=== PATIENT | female | born 1970 | race Caucasian/White ===

== ENCOUNTER 2019-01-04 19:32 | Emergency (ER) | payer SELFPAY ==
[2019-01-04 22:58] LABS: Absolute Monocytes 0.6 K/uL (0.1-1.3); Basophils % 0.7 % (0-1.3); Eosinophils % 1.4 % (0-4.4); Hematocrit 40.6 % (36.0-45.0); Lymphocytes % 33.8 % (15.3-44.8); MPV 9.4 fL (7.6-11.3); Monocytes % 6.6 % (3.3-12.3); RBC Red Blood Cell Count 4.37 M/uL (3.86-4.86)
[2019-01-04 23:00] LABS: BUN Blood Urea Nitrogen 17 mg/dL (7-18); Bicarbonate 28 mmol/L (21-32); Glucose Level 107 mg/dL (74-106); NT PRO-BNP 56 pg/mL (<125); Potassium 3.9 mmol/L (3.5-5.1); Sodium Level 143 mmol/L (136-145); Troponin (Emerg Dept Use Only) < 0.02 ng/mL (0.0-0.045)
[2019-01-04 23:55] LABS: Urine Blood NEGATIVE (NEG); Urine Glucose NEGATIVE (NEG); Urine Protein NEGATIVE (NEG); Urine Specific Gravity 1.025 (1.005-1.030); Urine pH 6.5 (5.0-7.0)
--- NOTE | 2019-01-05 01:40 | EDPHYS ---
Physician Documentation [facility] Name: Ghislaine Chambers Age: 48 yrs Sex: Female : 1970 Arrival Date: 01/04/2019 Time: 19:36 Bed 20 Private MD: ED Physician Alexis Deluna HPI: 01/05 01:32 This 48 yrs old Female presents to ER via Ambulatory with complaints of Chest gs Pain. 01:32 The patient or guardian reports chest pain that is located primarily in the anterior gs chest wall, right. Onset: yesterday. The pain does not radiate. Associated signs and symptoms: Pertinent negatives: diaphoresis, shortness of breath. The chest pain is described as SAYS FEELS LIKE ELECTRICAL SHOCKS IN CHEST AND NECK. Duration: The patient or guardian reports multiple episodes, that are intermittent, that wax and wane, with no pattern. Modifying factors: The symptoms are alleviated by nothing. the symptoms are aggravated by nothing. Severity of pain: At its worst the pain was moderate in the emergency department the pain has resolved. 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 - Social history:: Smoking status: Patient uses tobacco products, smokes one-half pack cigarettes per day. - Ebola Screening: : No symptoms or risks identified at this time. ROS: 01/05 01:32 All other systems are negative. gs Exam: 01:32 Head/Face: Normocephalic, atraumatic. Eyes: Pupils equal round and reactive to light, gs extra-ocular motions intact. Lids and lashes normal. Conjunctiva and sclera are non-icteric and not injected. Cornea within normal limits. Periorbital areas with no swelling, redness, or edema. ENT: Nares patent. No nasal discharge, no septal abnormalities noted. Tympanic membranes are normal and external auditory canals are clear. Oropharynx with no redness, swelling, or masses, exudates, or evidence of obstruction, uvula midline. Mucous membranes moist. Neck: Trachea midline, no thyromegaly or masses palpated, and no cervical lymphadenopathy. Supple, full range of motion without nuchal rigidity, or vertebral point tenderness. No Meningismus. Chest/axilla: Normal chest wall appearance and motion. Nontender with no deformity. No lesions are appreciated. Cardiovascular: Regular rate and rhythm with a normal S1 and S2. No gallops, murmurs, or rubs. Normal PMI, no JVD. No pulse deficits. Respiratory: Lungs have equal breath sounds bilaterally, clear to auscultation and percussion. No rales, rhonchi or wheezes noted. No increased work of breathing, no retractions or nasal flaring. Abdomen/GI: Soft, non-tender, with normal bowel sounds. No distension or tympany. No guarding or rebound. No evidence of tenderness throughout. Back: No spinal tenderness. No costovertebral tenderness. Full range of motion. Skin: Warm, dry with normal turgor. Normal color with no rashes, no lesions, and no evidence of cellulitis. MS/ Extremity: Pulses equal, no cyanosis. Neurovascular intact. Full, normal range of motion. Neuro: Awake and alert, GCS 15, oriented to person, place, time, and situation. Cranial nerves II-XII grossly intact. Motor strength 5/5 in all extremities. Sensory grossly intact. Cerebellar exam normal. Normal gait. 01:32 Constitutional: The patient appears alert, awake. 01:32 ECG was reviewed by the Attending Physician. Vital Signs: 01/04 19:48 BP 138 / 91; Pulse 89; Resp 18; Temp 97.9(O); Pulse Ox 97% on R/A; Weight 72.57 kg; lp1 Height 5 ft. 8 in. (172.72 cm); Pain 7/10; 21:20 BP 124 / 80; Pulse 58; Resp 16; Pulse Ox 100% on R/A; jb4 22:00 BP 120 / 72; Pulse 52; Resp 16; Pulse Ox 100% on R/A; jb4 23:00 BP 113 / 68; Pulse 50; Resp 16; Pulse Ox 100% on R/A; jb4 01/05 00:00 BP 126 / 64; Pulse 51; Resp 16; Pulse Ox 99% on R/A; jb4 01:00 BP 96 / 56; Pulse 50; Resp 14; Pulse Ox 100% on R/A; jb4 01:57 BP 109 / 55; Pulse 61; Resp 16; Pulse Ox 100% on R/A; jb4 01/04 19:48 Body Mass Index 24.33 (72.57 kg, 172.72 cm) lp1 MDM: 00:02 Patient medically screened. 01:32 Differential diagnosis: abnormal EKG, coronary artery disease chest wall pain, gs NEUROPATHIC PAIN. HEART Score: History: Slightly Suspicious (0), ECG: Non specific repolarization disturbance / LBTB / PM (1), Age: > 45 and < 65 years (1), Risk Factors: 1 or 2 risk factors (1), [Active Smoker] Troponin: < or = 1 x Normal Limit (0). Data reviewed: vital signs, nurses notes. Data reviewed: lab test result(s), EKG, radiologic studies. 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 01/04 21:44 Order name: NT PRO-BNP; Complete Time: 23:59 01/04 21:44 Order name: Basic Metabolic Panel; Complete Time: 23:59 01/04 21:44 Order name: CBC with Diff; Complete Time: 23:59 01/04 21:44 Order name: Troponin (emerg Dept Use Only); Complete Time: 23:59 01/04 23:33 Order name: Urine Dipstick--Ancillary (enter results); Complete Time: 23:59 01/04 23:33 Order name: Urine --Ancillary (enter results); Complete Time: 23:59 01/04 21:44 Order name: XRAY Chest (1 view) 01/04 21:44 Order name: EKG; Complete Time: 21:45 01/04 21:44 Order name: Cardiac monitoring; Complete Time: 22:26 01/04 21:44 Order name: EKG - Nurse/Tech; Complete Time: 22: 01/04 21:44 Order name: IV Saline Lock; Complete Time: : 01/04 21:44 Order name: Labs collected and sent; Complete Time: : 01/04 21:44 Order name: O2 Per Protocol; Complete Time: : 01/04 21:44 Order name: O2 Sat Monitoring; Complete Time: : 01/04 21:44 Order name: Urine Test (obtain specimen); Complete Time: : 01/04 21:44 Order name: Urine Dipstick-Ancillary (obtain specimen); Complete Time: 23:31 EC:32 Rate is 49 beats/min. VA interval is prolonged. QRS interval is prolonged. T waves are gs Normal. No ST changes noted. Clinical impression: Abnormal EKG without significant change. Interpreted by me. Administered Medications: No medications were administered Disposition: 01/05/19 01:39 Discharged to Home. Impression: Chest pain, unspecified. - Condition is Stable. - Discharge Instructions: Nonspecific Chest Pain. - Medication Reconciliation Form, Thank You Letter, Antibiotic Education, Prescription Opioid Use form. - Follow up: Private Physician; When: 2 - 3 days; Reason: Re-evaluation by your physician. Follow up: Nilay Sadler MD; When: 2 - 3 days; Reason: Re-evaluation by your physician. Follow up: Mihir Hou MD; When: 2 - 3 days; Reason: Re-evaluation by your physician. Signatures: Dispatcher [employer] EDTX Maddy Carmen RN RN lp1 Harmeet Wallace RN RN jb4 Alexis Deluna MD MD Corrections: (The following items were deleted from the chart) 01:39 01:39 01/05/2019 01:39 Discharged to Home. Impression: Chest pain, unspecified. gs Condition is Stable. Forms are Medication Reconciliation Form, Thank You Letter, Antibiotic Education, Prescription Opioid Use. Follow up: Private Physician; When: 2 - 3 days; Reason: Re-evaluation by your physician. Follow up: Nilay Sadler; When: 2 - 3 days; Reason: Re-evaluation by your physician. 02:00 01:39 01/05/2019 01:39 Discharged to Home. Impression: Chest pain, unspecified. jb4 Condition is Stable. Forms are Medication Reconciliation Form, Thank You Letter, Antibiotic Education, Prescription Opioid Use. Follow up: Private Physician; When: 2 - 3 days; Reason: Re-evaluation by your physician. Follow up: Nilay Sadler; When: 2 - 3 days; Reason: Re-evaluation by your physician. Follow up: Mihir Hou; When: 2 - 3 days; Reason: Re-evaluation by your physician.
--- NOTE | 2019-01-05 01:40 | ER ---
Nurse's Notes [facility] Name: Ghislaine Chambers Age: 48 yrs Sex: Female : 1970 Arrival Date: 01/04/2019 Time: 19:36 Bed 20 Private MD: Diagnosis: Chest pain, unspecified Presentation: 01/04 19:40 Presenting complaint: Patient states: Has been having chest pain for about a week; lp1 Headache that began this morning; Has been fatigued. 19:41 Transition of care: patient was not received from another setting of care. Onset of lp1 symptoms was January 04, 2019. Risk Assessment: Do you want to hurt yourself or someone else? Patient reports no desire to harm self or others. Initial Sepsis Screen: Does the patient meet any 2 criteria? No. Patient's initial sepsis screen is negative. Does the patient have a suspected source of infection? No. Patient's initial sepsis screen is negative. Care prior to arrival: None. 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 - Social history:: Smoking status: Patient uses tobacco products, smokes one-half pack cigarettes per day. - Ebola Screening: : No symptoms or risks identified at this time. Screenin:10 Abuse screen: Denies threats or abuse. Nutritional screening: No deficits noted. jb4 Tuberculosis screening: No symptoms or risk factors identified. Fall Risk None identified. Assessment: 21:10 General: Appears in no apparent distress. uncomfortable, Behavior is calm, cooperative, jb4 appropriate for age. Pain: Complains of pain in mid-sternal area Pain radiates to to left side of neck and head Pain currently is 4 out of 10 on a pain scale. Quality of pain is described as "It feels like a bubble moving up through my chest." Pain began gradually. Neuro: Level of Consciousness is awake, alert, obeys commands, Oriented to person, place, time, situation. Cardiovascular: Patient's skin is warm and dry. Rhythm is sinus bradycardia. Respiratory: Airway is patent Respiratory effort is even, unlabored, Respiratory pattern is regular, symmetrical. GI: No signs and/or symptoms were reported involving the gastrointestinal system. : No signs and/or symptoms were reported regarding the genitourinary system. EENT: No signs and/or symptoms were reported regarding the EENT system. Derm: Skin is intact, Skin is pink, warm \\T\\ dry. Musculoskeletal: Circulation, motion, and sensation intact. 22:00 Reassessment: Patient appears in no apparent distress at this time. Patient and/or jb4 family updated on plan of care and expected duration. Pain level reassessed. Patient is alert, oriented x 3, equal unlabored respirations, skin warm/dry/pink. 23:00 Reassessment: Patient appears in no apparent distress at this time. Patient and/or jb4 family updated on plan of care and expected duration. Pain level reassessed. Patient is alert, oriented x 3, equal unlabored respirations, skin warm/dry/pink. 01/05 00:00 Reassessment: Patient appears in no apparent distress at this time. Patient and/or jb4 family updated on plan of care and expected duration. Pain level reassessed. Patient is alert, oriented x 3, equal unlabored respirations, skin warm/dry/pink. 01:00 Reassessment: Patient appears in no apparent distress at this time. Patient and/or jb4 family updated on plan of care and expected duration. Pain level reassessed. Patient is alert, oriented x 3, equal unlabored respirations, skin warm/dry/pink. Patient states feeling better. 01:57 Reassessment: Patient appears in no apparent distress at this time. Patient and/or jb4 family updated on plan of care and expected duration. Pain level reassessed. Patient is alert, oriented x 3, equal unlabored respirations, skin warm/dry/pink. Vital Signs: 01/04 19:48 BP 138 / 91; Pulse 89; Resp 18; Temp 97.9(O); Pulse Ox 97% on R/A; Weight 72.57 kg; lp1 Height 5 ft. 8 in. (172.72 cm); Pain 7/10; 21:20 BP 124 / 80; Pulse 58; Resp 16; Pulse Ox 100% on R/A; jb4 22:00 BP 120 / 72; Pulse 52; Resp 16; Pulse Ox 100% on R/A; jb4 23:00 BP 113 / 68; Pulse 50; Resp 16; Pulse Ox 100% on R/A; jb4 01/05 00:00 BP 126 / 64; Pulse 51; Resp 16; Pulse Ox 99% on R/A; jb4 01:00 BP 96 / 56; Pulse 50; Resp 14; Pulse Ox 100% on R/A; jb4 01:57 BP 109 / 55; Pulse 61; Resp 16; Pulse Ox 100% on R/A; jb4 01/04 19:48 Body Mass Index 24.33 (72.57 kg, 172.72 cm) lp1 ED Course: 01/04 19:36 Patient arrived in ED. es 19:43 Triage completed. lp1 19:48 Arm band placed on right wrist. lp1 19:48 Patient maintains SpO2 saturation greater than 95% on room air. lp1 21:34 Alexis Deluna MD is Attending Physician. gs 21:35 Harmeet Wallace, RAHEEM is Primary Nurse. jb4 22:01 X-ray completed. Portable x-ray completed in exam room. Patient tolerated procedure ml well. 22:02 XRAY Chest (1 view) In Process Unspecified. EDMS 22:42 Missed attempt(s): 22 gauge Bleeding controlled, band aid applied, catheter tip intact. oe 22:42 Inserted saline lock: 24 gauge in left wrist, using aseptic technique. Blood collected. oe 01/05 01:00 Patient has correct armband on for positive identification. Placed in gown. Bed in low jb4 position. Call light in reach. Side rails up X 1. compliance monitor on. Pulse ox on. NIBP on. Warm blanket given. Pillow given. 01:39 Nilay Sadler MD is Referral Physician. gs 01:39 Mihir Hou MD is Referral Physician. gs 01:57 No provider procedures requiring assistance completed. IV discontinued, intact, jb4 bleeding controlled, No redness/swelling at site. Administered Medications: No medications were administered Outcome: 01:39 Discharge ordered by . gs 01:57 Discharged to home ambulatory. jb4 01:57 Condition: stable 01:57 Discharge instructions given to patient, Instructed on discharge instructions, follow up and referral plans. Demonstrated understanding of instructions, follow-up care. 02:00 Patient left the ED. jb4 Signatures: Dispatcher [employer] EDMiranda Rushing Melissa ml Pena, Laura, RN RN lp1 Harmeet Wallace RN RN jb4 Sundar Limon Gregory, MD MD gs Corrections: (The following items were deleted from the chart) 01/04 19:43 19:40 Presenting complaint: Patient states: Has been having chest pain for about a week lp1 lp1
--- NOTE | 2019-01-05 06:01 | EKG ---
Test Date: 2019-01-04 Test Time: 21:31:32 Production Material Coordinator: GLORIA MEASUREMENT RESULTS: Intervals: Rate: 49 W[place]: 256 QRSD: 102 QT: 450 QTc: 406 [place]: P: 49 [place]: 256 QRS: 81 T: 70 INTERPRETIVE STATEMENTS: Marked sinus bradycardia with 1st degree AV block Abnormal ECG No previous ECG available for comparison Electronically Signed On 01-05-19 06:00:00 CDT by Mihir Hou
--- NOTE | 2019-01-05 08:07 | RAD REPORT ---
EXAM DESCRIPTION: Kwame Single View01/04/2019 10:02 pm CLINICAL HISTORY: Chest pain COMPARISON: none FINDINGS: The lungs appear clear of acute infiltrate. The heart is normal size IMPRESSION: No acute abnormalities displayed
== END 2019-01-05 02:00 | disposition home or self-care (01) ==
LOC: ER 19:32
DX: R07.9 Chest pain, unspecified (principal); G35 Multiple sclerosis; F17.210 Nicotine dependence, cigarettes, uncomplicated
CPT/HCPCS: 36415; 71045; 80048; 81003; 81025; 83880; 84484; 85025; 93005; 99285

== ENCOUNTER 2019-01-23 11:01 | Emergency (ER) | payer SELFPAY ==
[2019-01-23 12:28] LABS: Absolute Lymphocytes (CBC) 1.9 K/uL (0.7-4.9); Absolute Monocytes 0.4 K/uL (0.1-1.3); Absolute Neutrophil 5.8 K/uL (1.8-8.0); Basophils % 0.5 % (0-1.3); Eosinophils % 0.9 % (0-4.4); Hematocrit 40.8 % (36.0-45.0); Lymphocytes % 23.5 % (15.3-44.8); MPV 8.9 fL (7.6-11.3); Monocytes % 4.3 % (3.3-12.3); RBC Red Blood Cell Count 4.37 M/uL (3.86-4.86)
[2019-01-23 12:46] LABS: ALT/SGPT 18 U/L (12-78); AST/SGOT 17 U/L (15-37); Albumin 3.9 g/dL (3.4-5.0); Alkaline Phosphatase 87 U/L (45-117); BUN Blood Urea Nitrogen 14 mg/dL (7-18); Bicarbonate 30 mmol/L (21-32); Bilirubin Direct 0.1 mg/dL (0-0.2); Bilirubin Total 0.4 mg/dL (0.2-1.0); Glucose Level 91 mg/dL (74-106); Lipase 178 U/L (73-393); Potassium 4.2 mmol/L (3.5-5.1); Protein, Total 7.2 g/dL (6.4-8.2); Sodium Level 143 mmol/L (136-145)
[2019-01-23] MEDS ORDERED: KETOROLAC 30 MG/ML INJ ONE (12:57)
[2019-01-23] MEDS ORDERED: NA CHLORIDE 0.9% 1,000 ML ONE (12:57)
[2019-01-23] MEDS ORDERED: ONDANSETRON 4 MG/2 ML VIAL ONE (12:57)
--- NOTE | 2019-01-23 15:05 | ER ---
Nurse's Notes [facility] Name: Ghislaine Chambers Age: 48 yrs Sex: Female : 1970 Arrival Date: 01/23/2019 Time: 11:07 Bed 15 Private MD: Diagnosis: Upper abdominal pain, unspecified Presentation: 01/23 11:08 Presenting complaint: EMS states: Pt hx of pancreatitis, reports that she is having a ph "flare" today, pt reports pain in LUQ that radiates to back, also c/o N/V, denies fever, reports taking 2 Zantac this morning w/ no relief. Transition of care: patient was not received from another setting of care. Onset of symptoms was January 23, 2019. Risk Assessment: Do you want to hurt yourself or someone else? Patient reports no desire to harm self or others. Initial Sepsis Screen: Does the patient meet any 2 criteria? No. Patient's initial sepsis screen is negative. Does the patient have a suspected source of infection? No. Patient's initial sepsis screen is negative. Care prior to arrival: None. 11:08 Method Of Arrival: EMS: [facility] ph 11:08 Acuity: KIAN 3 ph Triage Assessment: 14:55 General: Appears in no apparent distress. comfortable, Behavior is calm, cooperative. ph Neuro: Level of Consciousness is awake, alert, obeys commands, Oriented to person, place, time, situation. Cardiovascular: Capillary refill < 3 seconds. Respiratory: Airway is patent Trachea midline Respiratory effort is even, unlabored, Respiratory pattern is regular. GI: Abdomen is flat, non-distended. Derm: Skin is intact, is healthy with good turgor, Skin is dry, Skin is pink, warm \\T\\ dry. Skin temperature is warm. Musculoskeletal: Circulation, motion, and sensation intact. 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 - Social history:: The patient lives at home, Smoking status: Patient/guardian denies using tobacco. - Ebola Screening: : No symptoms or risks identified at this time. Screenin:40 Abuse screen: Denies threats or abuse. Nutritional screening: No deficits noted. ph Tuberculosis screening: No symptoms or risk factors identified. Fall Risk None identified. Assessment: 11:30 General: Appears in no apparent distress. comfortable, slender, well groomed, Behavior ph is calm, cooperative, appropriate for age, Denies fever. Pain: Complains of pain in left upper quadrant Pain radiates to back. Neuro: Level of Consciousness is awake, alert, obeys commands, Oriented to person, place, time, situation. Cardiovascular: Capillary refill < 3 seconds in bilateral fingers Patient's skin is warm and dry. Respiratory: Airway is patent Respiratory effort is even, unlabored, Respiratory pattern is regular, symmetrical. GI: Abdomen is flat, non-distended, Bowel sounds present X 4 quads. Abd is soft and non tender X 4 quads. Reports upper abdominal pain, nausea, vomiting, Patient currently denies diarrhea. : No signs and/or symptoms were reported regarding the genitourinary system. Derm: Skin is intact, is healthy with good turgor, Skin is pink, warm \\T\\ dry. Musculoskeletal: Circulation, motion, and sensation intact. Range of motion: intact in all extremities. 12:30 Reassessment: Patient appears in no apparent distress at this time. Patient and/or ph family updated on plan of care and expected duration. Pain level reassessed. Patient is alert, oriented x 3, equal unlabored respirations, skin warm/dry/pink. 13:30 Reassessment: Patient appears in no apparent distress at this time. Patient and/or ph family updated on plan of care and expected duration. Pain level reassessed. Patient is alert, oriented x 3, equal unlabored respirations, skin warm/dry/pink. 14:30 Reassessment: Patient appears in no apparent distress at this time. Patient and/or ph family updated on plan of care and expected duration. Pain level reassessed. Patient is alert, oriented x 3, equal unlabored respirations, skin warm/dry/pink. Pt resting quietly, reports that pain has decreased to 6/10 and nausea has improved. 15:32 Reassessment: Patient appears in no apparent distress at this time. Patient and/or ph family updated on plan of care and expected duration. Pain level reassessed. Patient is alert, oriented x 3, equal unlabored respirations, skin warm/dry/pink. Pt instructed to follow up w/ GI if symptoms persist, d/c home. Vital Signs: 11:10 BP 106 / 69; Pulse 61; Resp 18; Temp 98.2; Pulse Ox 100% on R/A; Weight 70.31 kg; ph Height 5 ft. 8 in. (172.72 cm); Pain 8/10; 12:00 BP 97 / 61; Pulse 62; Resp 16; Pulse Ox 98% on R/A; ph 13:30 BP 104 / 66; Pulse 58; Resp 18; Temp 98.0; Pulse Ox 99% on R/A; ph 14:52 BP 90 / 62; Pulse 56; Resp 17; Pulse Ox 100% on R/A; ph 15:39 BP 107 / 68; Pulse 62; Resp 18; Temp 97.8(TE); Pulse Ox 98% on R/A; Pain 6/10; ph 11:10 Body Mass Index 23.57 (70.31 kg, 172.72 cm) ph ED Course: 11:07 Patient arrived in ED. ph 11:10 Triage completed. ph 11:20 Alexis Deluna MD is Attending Physician. gs 12:02 Aaliyah Thurman, RN is Primary Nurse. ph 12:15 Inserted saline lock: 22 gauge in left forearm, using aseptic technique. Missed ph attempt(s): 22 gauge in left antecubital area. 14:08 EKG done, by cdl service technician. reviewed by Alexis Deluna MD. at1 15:04 Marcos Castillo MD is Referral Physician. gs 15:38 Arm band placed on. ph 15:38 Patient has correct armband on for positive identification. Placed in gown. Bed in low ph position. Call light in reach. Side rails up X 1. 15:39 No provider procedures requiring assistance completed. IV discontinued, intact, ph bleeding controlled, No redness/swelling at site. Pressure dressing applied. Administered Medications: 13:00 Drug: NS 0.9% 1000 ml Route: IV; Rate: 1 bolus; Site: left antecubital; ph 15:03 Follow up: Response: No adverse reaction; IV Status: Completed infusion ph 15:41 Follow up: Response: No adverse reaction; IV Status: Completed infusion ph 13:00 Drug: TORadol - Ketorolac 15 mg Route: IVP; Site: left forearm; ph 15:45 Follow up: Response: No adverse reaction; Pain is decreased ph 13:02 Drug: Zofran 4 mg Route: IVP; Site: left forearm; ph 15:46 Follow up: Response: No adverse reaction; Nausea is decreased ph 15:03 Not Given (Other Intervention Used): Benadryl 12.5 mg IVP once ph Outcome: 15:05 Discharge ordered by . gs 15:48 Patient left the ED. ph 15:48 Discharged to home ambulatory. ph 15:48 Condition: good 15:48 Discharge instructions given to patient, Instructed on discharge instructions, follow up and referral plans. medication usage, Demonstrated understanding of instructions, follow-up care, medications, Prescriptions given X 1. Signatures: Mile Mendez, cash crop farmer EKG Tat1 Aaliyah Thurman RN RN DelunaAlexis MD MD Corrections: (The following items were deleted from the chart) 14:55 14:53 Abuse screen: Denies threats or abuse. ph ph 14:55 14:53 Nutritional screening: No deficits noted. ph ph 14:55 14:53 Tuberculosis screening: No symptoms or risk factors identified. ph ph 14:55 14:53 Fall Risk None identified. ph ph
--- NOTE | 2019-01-23 15:06 | EDPHYS ---
Physician Documentation [facility] Name: Ghislaine Chambers Age: 48 yrs Sex: Female : 1970 Arrival Date: 01/23/2019 Time: 11:07 Bed 15 Private MD: ED Physician Alexis Deluna HPI: 01/23 13:52 This 48 yrs old Female presents to ER via EMS with complaints of Abdominal gs Pain. 13:52 The patient presents with abdominal pain in the upper abdomen. gs 14:51 Onset: The symptoms/episode began/occurred yesterday. Associated signs and symptoms: gs Pertinent negatives: nausea and vomiting, diarrhea, fever. The symptoms are described as crampy. Modifying factors: The symptoms are alleviated by nothing, the symptoms are aggravated by nothing. Severity of pain: At its worst the pain was moderate in the emergency department the pain is unchanged. The patient has experienced similar episodes in the past, several times. 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 - Social history:: The patient lives at home, Smoking status: Patient/guardian denies using tobacco. - Ebola Screening: : No symptoms or risks identified at this time. ROS: 14:51 All other systems are negative. gs Exam: 14:51 Head/Face: Normocephalic, atraumatic. Eyes: Pupils equal round and reactive to light, gs extra-ocular motions intact. Lids and lashes normal. Conjunctiva and sclera are non-icteric and not injected. Cornea within normal limits. Periorbital areas with no swelling, redness, or edema. ENT: Nares patent. No nasal discharge, no septal abnormalities noted. Tympanic membranes are normal and external auditory canals are clear. Oropharynx with no redness, swelling, or masses, exudates, or evidence of obstruction, uvula midline. Mucous membranes moist. Neck: Trachea midline, no thyromegaly or masses palpated, and no cervical lymphadenopathy. Supple, full range of motion without nuchal rigidity, or vertebral point tenderness. No Meningismus. Chest/axilla: Normal chest wall appearance and motion. Nontender with no deformity. No lesions are appreciated. Cardiovascular: Regular rate and rhythm with a normal S1 and S2. No gallops, murmurs, or rubs. Normal PMI, no JVD. No pulse deficits. Respiratory: Lungs have equal breath sounds bilaterally, clear to auscultation and percussion. No rales, rhonchi or wheezes noted. No increased work of breathing, no retractions or nasal flaring. Back: No spinal tenderness. No costovertebral tenderness. Full range of motion. Skin: Warm, dry with normal turgor. Normal color with no rashes, no lesions, and no evidence of cellulitis. MS/ Extremity: Pulses equal, no cyanosis. Neurovascular intact. Full, normal range of motion. Neuro: Awake and alert, GCS 15, oriented to person, place, time, and situation. Cranial nerves II-XII grossly intact. Motor strength 5/5 in all extremities. Sensory grossly intact. Cerebellar exam normal. Normal gait. 14:51 Constitutional: The patient appears in no acute distress, alert, awake. 14:51 ECG was reviewed by the Attending Physician. 14:51 Abdomen/GI: Inspection: distension, is not seen, Palpation: mild abdominal tenderness, in the epigastric area, right upper quadrant and left upper quadrant, rebound tenderness, is not appreciated. Vital Signs: 11:10 BP 106 / 69; Pulse 61; Resp 18; Temp 98.2; Pulse Ox 100% on R/A; Weight 70.31 kg; ph Height 5 ft. 8 in. (172.72 cm); Pain 8/10; 12:00 BP 97 / 61; Pulse 62; Resp 16; Pulse Ox 98% on R/A; ph 13:30 BP 104 / 66; Pulse 58; Resp 18; Temp 98.0; Pulse Ox 99% on R/A; ph 14:52 BP 90 / 62; Pulse 56; Resp 17; Pulse Ox 100% on R/A; ph 15:39 BP 107 / 68; Pulse 62; Resp 18; Temp 97.8(TE); Pulse Ox 98% on R/A; Pain 6/10; ph 11:10 Body Mass Index 23.57 (70.31 kg, 172.72 cm) ph MDM: 12:02 Patient medically screened. gs 15:02 Differential diagnosis: gastritis, gastroesophageal reflux disease, non-specific abd gs pain, pancreatitis. Data reviewed: vital signs, nurses notes, old medical records, lab test result(s), EKG, radiologic studies. Counseling: I had a detailed discussion with the patient and/or guardian regarding: the historical points, exam findings, and any diagnostic results supporting the discharge/admit diagnosis, lab results, the need for outpatient follow up. Response to treatment: the patient's symptoms have markedly improved after treatment, and as a result, I will discharge patient. 01/23 12:02 Order name: Basic Metabolic Panel; Complete Time: 12:47 01/23 12:02 Order name: CBC with Diff; Complete Time: 12:43 01/23 12:02 Order name: Hepatic Function; Complete Time: 12:47 01/23 12:02 Order name: Lipase; Complete Time: 12:47 01/23 12:02 Order name: IV Saline Lock; Complete Time: 12:19 01/23 12:02 Order name: Labs collected and sent; Complete Time: 12:19 01/23 13:52 Order name: EKG; Complete Time: 13:53 01/23 13:52 Order name: EKG - Nurse/Tech; Complete Time: 15:02 gs EC:51 Rate is 48 beats/min. Rhythm is regular. PA interval is prolonged. QRS interval is gs normal. QT interval is normal. T waves are Normal. No ST changes noted. Clinical impression: Sinus bradycardia. Interpreted by me. Administered Medications: 13:00 Drug: NS 0.9% 1000 ml Route: IV; Rate: 1 bolus; Site: left antecubital; ph 15:03 Follow up: Response: No adverse reaction; IV Status: Completed infusion ph 15:41 Follow up: Response: No adverse reaction; IV Status: Completed infusion ph 13:00 Drug: TORadol - Ketorolac 15 mg Route: IVP; Site: left forearm; ph 15:45 Follow up: Response: No adverse reaction; Pain is decreased ph 13:02 Drug: Zofran 4 mg Route: IVP; Site: left forearm; ph 15:46 Follow up: Response: No adverse reaction; Nausea is decreased ph 15:03 Not Given (Other Intervention Used): Benadryl 12.5 mg IVP once ph Disposition: 01/23/19 15:05 Discharged to Home. Impression: Upper abdominal pain, unspecified. - Condition is Stable. - Discharge Instructions: Abdominal Pain, Adult. - Prescriptions for Prilosec 20 mg Oral Capsule, Delayed Release(E.C.) - take 1 capsule by ORAL route once daily; 15 capsule. - Medication Reconciliation Form, Thank You Letter, Antibiotic Education, Prescription Opioid Use form. - Follow up: Marcos Castillo MD; When: 2 - 3 days; Reason: Re-evaluation by your physician. Signatures: Dispatcher [employer] EDMI Aaliyah Thurman RN RN ph Deluna, MD GEORGETTE Espinoza Corrections: (The following items were deleted from the chart) 15:48 15:05 01/23/2019 15:05 Discharged to Home. Impression: Upper abdominal pain, ph unspecified. Condition is Stable. Forms are Medication Reconciliation Form, Thank You Letter, Antibiotic Education, Prescription Opioid Use. Follow up: Marcos Castillo; When: 2 - 3 days; Reason: Re-evaluation by your physician. gs
--- NOTE | 2019-01-23 16:24 | EKG ---
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
== END 2019-01-23 15:48 | disposition home or self-care (01) ==
LOC: ER 11:01
DX: R10.10 Upper abdominal pain, unspecified (principal); C50.919 Malignant neoplasm of unspecified site of unspecified female breast; G35 Multiple sclerosis; Z90.11 Acquired absence of right breast and nipple; Z88.5 Allergy status to narcotic agent; Z88.6 Allergy status to analgesic agent; Z91.041 Radiographic dye allergy status
CPT/HCPCS: 36415; 80048; 80076; 83690; 85025; 93005; 96361; 96374; 96375; 99284; J2405; J7030